=== PATIENT | male | born 1970 | race Caucasian/White ===

== ENCOUNTER → 2016-11-01 | Outpatient (CLI) | payer OTHER ==
--- NOTE | 2016-11-01 08:49 | KCIC ---
Ultrasound abdomen limited Indication: Nausea and bloating as well as right upper quadrant pain. The liver is normal in size. There is diffuse increased echogenicity suggestive of fatty infiltration. No discrete liver mass is identified. The portal vein is patent and shows normal direction of flow. There is a stone identified within the gallbladder neck, which appears nonmobile. However, no gallbladder wall thickening is detected. No pericholecystic fluid is detected. Extrahepatic bile duct is borderline at 7 millimeters. The pancreas was poorly visualized. The right kidney is unremarkable. Aorta is non aneurysmal. IVC was poorly visualized. There is no ascites. Impression: Fatty infiltration of the liver. Cholelithiasis without evidence of acute cholecystitis. Electronically signed by: Oscar Youngblood MD (Nov 01, 2016 08:47:45)
== END | disposition home or self-care (01) ==
LOC: KCIC US 07:50
PROVIDERS: ATTEND Family Medicine
DX: K76.0 Fatty (change of) liver, not elsewhere classified (principal); R10.11 Right upper quadrant pain; K21.9 Gastro-esophageal reflux disease without esophagitis; R07.9 Chest pain, unspecified
CPT/HCPCS: 76705